=== PATIENT | male | born 1965 | race African-American/Black ===

== ENCOUNTER 2023-07-07 16:22 | Emergency (ER) | payer OTHER, SELFPAY ==
[2023-07-07] MEDS ORDERED: HYDROcodone/Acetaminophen 5/325 mg Tablet ONE (16:59)
== END 2023-07-07 17:07 | disposition home or self-care (01) ==
LOC: ERS 16:22
DX: G62.9 Polyneuropathy, unspecified (principal); G89.29 Other chronic pain; F17.210 Nicotine dependence, cigarettes, uncomplicated
CPT/HCPCS: 99283